=== PATIENT | female | born 1990 | race American Indian/Alaskan Native ===

== ENCOUNTER 2016-09-08 21:18 | Emergency (ER) | payer MEDICAID ==
[2016-09-08 21:56] VITALS: BP 105/76
[2016-09-08 23:16] LABS: Bilirubin,Urine NEG (Negative); Blood,Urine SM (Negative); Ketones,Urine NEG (Negative); Leukocyte Esterase,Urine NEG (Negative); Mucus,Urine 3+ /HPF; Nitrite,Urine NEG (Negative); Urobilinogen,Urine < 2.0 mg/dL (<2.0)
[2016-09-09] MEDS ORDERED: XYLOCAINE 1% MPF 5 mL INFILTRATI ONE (02:29)
[2016-09-09] MEDS ORDERED: ZITHROMAX PO ONE (02:29)
[2016-09-09] MEDS ORDERED: ROCEPHIN IM ONE (02:29)
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
== END 2016-09-09 03:37 | disposition home or self-care (01) ==
LOC: ED 21:18
DX: T76.21XA Adult sexual abuse, suspected, initial encounter (principal); F12.10 Cannabis abuse, uncomplicated
CPT/HCPCS: 81001; 81025; 87591; 96372; 99283; J0696

== ENCOUNTER 2016-10-12 18:27 | Emergency (ER) | payer MEDICAID ==
[2016-10-12] MEDS ORDERED: DECADRON IM ONE (19:29)
[2016-10-12] MEDS ORDERED: TORADOL IM ONE (19:29)
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
[2016-10-12 20:32] LABS: Bacteria,Urine 1+ /HPF (Negative); Bilirubin,Urine NEG (Negative); Blood,Urine NEG (Negative); Ketones,Urine 20 mg/dL (Negative); Leukocyte Esterase,Urine NEG (Negative); Mucus,Urine 3+ /HPF; Nitrite,Urine NEG (Negative); Urobilinogen,Urine < 2.0 mg/dL (<2.0)
--- NOTE | 2016-10-12 22:13 | XRay Report ---
FINAL REPORT EXAM: XR SPINE LUMBOSACRAL 2-3V HISTORY: lumbar rdiculopathy TECHNIQUE: Lumbar spine three views 3 images PRIORS: None. FINDINGS: No gross abnormality is seen in the visualized paraspinal soft tissues. Vertebral body height is preserved. No acute fracture or anterolisthesis is identified. Intervertebral disc height is preserved. There is thoracolumbar dextroscoliosis. IMPRESSION: 1. No acute osseous abnormality is identified. 2. Dextroscoliosis is noted. This may be exaggerated by patient positioning.
[2016-10-12 23:07] VITALS: BP 118/75
== END 2016-10-12 23:09 | disposition home or self-care (01) ==
LOC: ED 18:27
DX: E86.0 Dehydration (principal); R80.9 Proteinuria, unspecified; M54.42 Lumbago with sciatica, left side
CPT/HCPCS: 72100; 81001; 81025; 87086; 87591; 96372; 99283; J1100; J1885

== ENCOUNTER 2017-09-06 04:36 | Emergency (ER) | payer MEDICAID ==
[2017-09-06] MEDS ORDERED: MOTRIN PO ONE ×2 (05:08→05:20)
[2017-09-06 05:20] VITALS: BP 118/85
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
== END 2017-09-06 10:50 | disposition home or self-care (01) ==
LOC: ED 04:36
DX: H66.92 Otitis media, unspecified, left ear (principal)
CPT/HCPCS: 99282